=== PATIENT | female | born 1960 ===

== ENCOUNTER 2021-07-08 20:46 | Observation (INO) ==
[2021-07-08] MEDS ORDERED: *HR* OxyCODONE Immed Rel 5 MG TABLET PO PRN (23:45)
[2021-07-08] MEDS ORDERED: Acetaminophen 325 MG TABLET PO PRN (23:45)
[2021-07-08] MEDS ORDERED: *HR* HYDROcodone/Acet 5/325 mg TABLET PO PRN (23:45)
[2021-07-08] MEDS ORDERED: Ondansetron ODT 4 MG TAB.RAPDIS SL PRN (23:45)
[2021-07-08] MEDS ORDERED: Naloxone 0.4 MG/ML INJ IVP PRN (23:45)
[2021-07-08] MEDS ORDERED: Melatonin 3 MG TABLET PO PRN (23:45)
[2021-07-08] MEDS ORDERED: Nitroglycerin 0.4 MG TAB.SUBL SL PRN (23:47)
[2021-07-08] MEDS ORDERED: Perflutren Lipid Microsphere 1.3 ML in 0.9 % Sodium Chloride 8.7 ML IVP PRN (23:48)
[2021-07-09] MEDS ORDERED: *HR* Dextrose 50 % in Water (Syg) 50 ML SYRINGE IVP PRN (00:56)
[2021-07-09] MEDS ORDERED: Dextrose Gel 15 GM/37.5 ML TUBE PO PRN ×2 (00:56)
[2021-07-09] MEDS ORDERED: D5% in Water 1,000 ML IVC PRN (00:56)
[2021-07-09 01:43] LABS: Hematocrit 36.4 % (35.3-44.9); Hemoglobin 11.8 g/dL (11.5-15.4); Mean Corpuscular HGB Conc 32.4 g/dL (31.6-35.5); Mean Corpuscular Hemoglobin 28.4 pg (28.0-33.3); Mean Corpuscular Volume 87.5 fL (83.0-100.0); Mean Platelet Volume 10.2 fL (9.4-12.4); Platelet Count 236 K/mcL (140-400); Red Blood Count 4.16 M/mcL (3.82-4.97); Red Cell Distribution Width 12.3 % (11.5-14.5); White Blood Count 6.5 K/mcL (4.3-11.1)
[2021-07-09 02:07] LABS: Calcium 8.1 mg/dL (8.6-10.3); Chol/HDL Ratio 2.9 (0-4.9); Magnesium 1.9 mg/dL (1.6-2.6); Phosphorous 2.3 mg/dL (2.7-4.5); Potassium 3.9 mEq/L (3.5-5.1)
[2021-07-09 02:32] LABS: Estimated Average Glucose 189 mg/dl; Hemoglobin A1C 8.2 %
[2021-07-09] MEDS: Insulin LISPRO 300 UNITS/3 ML VIAL SUBQ SCH ×4 (05:46→23:38)
[2021-07-09] MEDS: lisinopriL 5 MG TABLET PO SCH (08:31)
[2021-07-09] MEDS: Aspirin 81 MG TAB.CHEW PO SCH (08:45)
[2021-07-09] MEDS ORDERED: Regadenoson 0.4 MG/5 ML SYRINGE IVP ONE (09:10)
[2021-07-09] MEDS: *HR* Heparin 5,000 UNIT/ML VIAL SQ SCH ×2 (13:38→20:42)
[2021-07-10] MEDS: Insulin LISPRO 300 UNITS/3 ML VIAL SUBQ SCH ×3 (04:34→16:57)
[2021-07-10] MEDS: *HR* Heparin 5,000 UNIT/ML VIAL SQ SCH ×3 (05:20→19:44)
[2021-07-10] MEDS: lisinopriL 5 MG TABLET PO SCH ×2 (07:03→10:16)
[2021-07-10] MEDS: Aspirin 81 MG TAB.CHEW PO SCH (08:04)
[2021-07-10] MEDS: Metoprolol XL (24 HR) Succ 25 MG TAB.ER.24H PO SCH (10:15)
[2021-07-10] MEDS: amLODIPine 5 MG TABLET PO SCH (10:16)
[2021-07-10] MEDS ORDERED: Perflutren Lipid Microsphere 1.3 ML in 0.9 % Sodium Chloride 8.7 ML IVP PRN (13:51)
[2021-07-11] MEDS: Insulin LISPRO 300 UNITS/3 ML VIAL SUBQ SCH ×3 (01:30→11:21)
[2021-07-11 01:41] LABS: Calcium 7.8 mg/dL (8.6-10.3); Magnesium 1.8 mg/dL (1.6-2.6); Phosphorous 2.2 mg/dL (2.7-4.5); Potassium 4.2 mEq/L (3.5-5.1)
[2021-07-11] MEDS: *HR* Heparin 5,000 UNIT/ML VIAL SQ SCH ×2 (05:58→13:04)
[2021-07-11] MEDS: Aspirin 81 MG TAB.CHEW PO SCH (08:07)
[2021-07-11] MEDS: lisinopriL 5 MG TABLET PO SCH ×2 (08:07)
[2021-07-11] MEDS: Metoprolol XL (24 HR) Succ 25 MG TAB.ER.24H PO SCH (08:07)
[2021-07-11] MEDS: amLODIPine 5 MG TABLET PO SCH (08:08)
[2021-07-11] MEDS ORDERED: Isosorbide MONOnitrate (24 HR) 30 MG TAB.ER.24H PO SCH (10:45)
[2021-07-11 11:10] VITALS: BP 104/64; PULSE 90; TEMP 98.1; O2SAT 96
== END 2021-07-11 13:16 | disposition home or self-care (01) ==
LOC: 3BNU → SUATTDRO 23:18
PROVIDERS: ADMIT Internal Medicine; ATTEND Internal Medicine